=== PATIENT | male | born 1970 | race Caucasian/White ===

== ENCOUNTER → 2016-09-28 | Outpatient (CLI) | payer OTHER ==
--- NOTE | 2016-09-28 15:18 | XR ---
EXAMINATION TYPE: XR shoulder complete LT DATE OF EXAM ORDERED: 09/28/2016 HISTORY: S43.402A Left shoulder sprain. COMPARISON: None. FINDINGS: There are hypertrophic changes in the left AC joint. No fracture, dislocation or other acu te osseous lesion is seen. IMPRESSION: 1. NO ACUTE OSSEOUS LESION. 2. HYPERTROPHIC CHANGE, LEFT AC JOINT.
== END | disposition home or self-care (01) ==
LOC: RADXRMAIN 14:59
PROVIDERS: ATTEND Emergency Medicine
DX: M25.812 Other specified joint disorders, left shoulder (principal)

== ENCOUNTER → 2016-10-05 | Outpatient (CLI) | payer OTHER ==
--- NOTE | 2016-10-05 07:29 | MR ---
EXAMINATION TYPE: MR shoulder LT wo con DATE OF EXAM: 10/05/2016 7:11 AM COMPARISON: EXAMINATION TYPE: MR shoulder LT wo con DATE OF EXAM: 10/05/2016 7:11 AM COMPARISON: NONE HISTORY: Left shoulder pain TECHNIQUE: Multiplanar, multisequence imaging of the left shoulder is performed without contrast. FINDINGS: There is no evidence of an os acromiale. There are moderate hypertrophic inflammatory changes in the left AC joint. There is an incomplete full-thickness tear of the supraspinatus tendon and the posterior infraspinatu s tendon a few fibers remaining attached. There is muscular retraction back to the posterior one thir d of the humeral head. The subscapularis tendon appears normal. The cartilaginous glenoid labrum appears intact. The biceps tendon is normally situated in the biceps tendon groove and inserts normally in the biceps anchor. There is abnormal signal within the intra-articular portion of the biceps tendon which may r epresent tendinosis or small subtle interstitial tear. There is abnormal fluid in the subacromial and subdeltoid spaces. IMPRESSION: 1. NEAR COMPLETE TEAR OF THE SUPRASPINATUS AND INFRASPINATUS TENDONS. 2. ABNORMAL SIGNAL WITHIN THE INTRA-ARTICULAR PORTION OF THE BICEPS TENDON EITHER REPRESENTING TENDIN OSIS OR SMALL INTRASUBSTANCE TEAR. 3. MODERATE HYPERTROPHIC AND INFLAMMATORY CHANGES IN THE LEFT AC JOINT.
== END | disposition home or self-care (01) ==
LOC: RADMRIMAIN 06:37
PROVIDERS: ATTEND Emergency Medicine
DX: S46.812D Strain of other muscles, fascia and tendons at shoulder and upper arm level, left arm, subsequent encounter (principal); R93.7 Abnormal findings on diagnostic imaging of other parts of musculoskeletal system

== ENCOUNTER 2022-12-05 13:24 | Day surgery (SDC) | payer OTHER ==
[2022-11-30 15:17] VITALS: BMI 34.0
[2022-12-05] MEDS ORDERED: LIDOCAINE 1% (10MG/ML) FOR IV START INTRADERMA PRN (13:30)
[2022-12-05] MEDS ORDERED: LACTATED RINGERS 1,000 ML IV SCH (13:30)
[2022-12-05 13:52] VITALS: RESP 16; TEMP 96.5
[2022-12-05] MEDS ORDERED: LIDOCAINE 2% INJ 20 MG/ML (2 ML VIAL) ONE (13:59)
[2022-12-05] MEDS ORDERED: PROPOFOL 10 MG/ML 20 ML VIAL IV ONE (13:59)
--- NOTE | 2022-12-05 14:02 | P.GSHP ---
History of Present Illness H&P Date: 12/05/22 Chief Complaint: Dysphagia 52-year-old male here for EGD. Patient with complaints of increasing dysphagia. Mostly with solid and dry foods. History of chronic reflux. Past Medical History Past Medical History: Asthma, GERD/Reflux, Hyperlipidemia, Hypertension Additional Past Medical History / Comment(s): /difficulty swallowing. History of Any Multi-Drug Resistant Organisms: MRSA Date of last positivie culture/infection: 2012 MDRO Source:: L knee Past Surgical History: Orthopedic Surgery Additional Past Surgical History / Comment(s): R knee scope and partial replacement, R femur fx with pins since removed, R femur infection/removed marrow, L shoulder torn rotator with screws, Past Anesthesia/Blood Transfusion Reactions: No Reported Reaction Additional Past Anesthesia/Blood Transfusion Reaction / Comment(s): Pt has received blood without reaction. Smoking Status: Never smoker - Past Family History Mother Family Medical History: Myocardial Infarction ([place]) Medications and Allergies Home Medications Medication Instructions Recorded Confirmed Type Atorvastatin [Lipitor] 10 mg PO QAM 11/23/22 12/05/22 History Baclofen 10 mg PO TID PRN 11/23/22 12/05/22 History Dextroamphetamine/Amphetamine 25 mg PO QAM 11/23/22 12/05/22 History [Adderall Xr 25 mg Capsule] Ibuprofen 800 mg PO Q8H PRN 11/23/22 12/05/22 History Metoprolol Succinate (ER) [Toprol 25 mg PO QAM 11/23/22 12/05/22 History XL] amLODIPine BESYLATE/BENAZEPRIL 1 cap PO QAM 11/23/22 12/05/22 History [Lotrel 5-10 mg Capsule] Allergies Allergy/AdvReac Type Severity Reaction Status Date / Time bacitracin Allergy Severe Anaphylaxis Verified 12/05/22 13:53 [From Neosporin ([id number])] naproxen [From Aleve] Allergy Severe Swelling Verified 12/05/22 13:53 neomycin Allergy Severe Anaphylaxis Verified 12/05/22 13:53 [From Neosporin ([id number])] polymyxin B Allergy Severe Anaphylaxis Verified 12/05/22 13:53 [From Neosporin ([id number])] iodine Allergy Rash/Hives Verified 12/05/22 13:53 Surgical - Exam Vital Signs Temp Pulse Resp BP Pulse Ox 96.5 F L 67 16 165/91 98 12/05/22 13:50 12/05/22 13:50 12/05/22 13:50 12/05/22 13:50 12/05/22 13:50 Physical exam: General: Well-developed, well-nourished HEENT: Normocephalic, sclerae nonicteric Abdomen: Nontender, nondistended Extremities: No edema Neuro: Alert and oriented Assessment and Plan (1) Dysphagia Narrative/Plan: Will proceed with EGD at this time. Current Visit: Yes Status: Acute Code(s): R13.10 - DYSPHAGIA, UNSPECIFIED SNOMED Code(s): 33233885
--- NOTE | 2022-12-05 14:11 | P.PCN ---
Date of Procedure: 12/05/22 Procedure(s) Performed: Preoperative Dx: Dysphagia Postoperative Dx: Mild distal esophagitis, small hiatal hernia, mild gastritis Procedure: EGD with Bx Anesthesia: Sedation Endoscopist: Dr. Galarza Specimens: Antrum, distal esophagus Endoscopic Procedure: The patient was on the endoscopy table in the left decubitus position. The Olympus gastroscope was inserted into the oropharynx and passed under direct visualization to the region of the third portion of the duodenum. From that point the scope was slowly withdrawn inspecting all surfaces carefully. There were no neoplastic inflammatory or polypoid lesions throughout the duodenum. The pylorus was widely patent. The stomach was carefully inspected. There was mild gastritis present. A biopsy of the antrum took place to rule out H. pylori. Retroflexion revealed a small sliding hiatal hernia. The GE junction was present 1 cm above the diaphragmatic hiatus. At the GE junction there were 3 small erosions measuring less than 1 cm. These were non-circumferential. There was no stricture formation seen. A biopsy of the esophagitis was seen. The remainder the esophagus appear normal. The patient was then taken to the recovery room in stable condition per anesthesia guidelines. Recommendations: Await biopsy results. Begin antiacid.
[2022-12-05 14:39] VITALS: BP 134/72; PULSE 6
== END 2022-12-05 14:45 ==
LOC: ORWHC2ENDO 13:24
PROVIDERS: ATTEND Surgery
DX: K29.50 Unspecified chronic gastritis without bleeding (principal); K21.00 Gastro-esophageal reflux disease with esophagitis, without bleeding; K44.9 Diaphragmatic hernia without obstruction or gangrene; J45.909 Unspecified asthma, uncomplicated; E78.5 Hyperlipidemia, unspecified; I10 Essential (primary) hypertension; Z79.811 Long term (current) use of aromatase inhibitors; Z79.899 Other long term (current) drug therapy; Z88.1 Allergy status to other antibiotic agents; Z88.6 Allergy status to analgesic agent; Z88.8 Allergy status to other drugs, medicaments and biological substances; Z98.890 Other specified postprocedural states; Z82.49 Family history of ischemic heart disease and other diseases of the circulatory system; Z86.14 Personal history of Methicillin resistant Staphylococcus aureus infection
CPT/HCPCS: 43239; J2704; J2001; 88305